=== PATIENT | male | born 1990 | race Hispanic/Latino ===

== ENCOUNTER 2017-04-09 15:51 | Emergency (ER) | payer OTHER ==
[~2017-04-09] VITALS: Ht 175.3 cm; Wt 71.9 kg
[~2017-04-09 15:51] MED LIST: NAPROSYN500 MG PO; VALIUM5 MG PO
[2017-04-09 20:39] VITALS: BP 122/56
== END 2017-04-09 20:40 | disposition home or self-care (01) ==
LOC: EME 15:51
DX: S60.222A Contusion of left hand, initial encounter (principal); S60.221A Contusion of right hand, initial encounter; S60.512A Abrasion of left hand, initial encounter; S60.511A Abrasion of right hand, initial encounter; W20.8XXA Other cause of strike by thrown, projected or falling object, initial encounter; Y92.008 Other place in unspecified non-institutional (private) residence as the place of occurrence of the external cause; J45.909 Unspecified asthma, uncomplicated
CPT/HCPCS: 99281; 99282